=== PATIENT | female | born 1990 | race Caucasian/White ===

== ENCOUNTER 2017-01-08 07:41 | Emergency (ER) | payer OTHER ==
[~2017-01-08] VITALS: Wt 73.0 kg
[2017-01-08] MEDS ORDERED: ACYC800T57 PO (08:06)
[2017-01-08] MEDS ORDERED: IBUP-1542 PO (08:06)
[2017-01-08] MEDS ORDERED: HYDR-906 PO (08:06)
--- NOTE | 2017-01-08 08:14 | ERD ---
ER Documentation Chief Complaint Date/Time DATE: 01/08/17 TIME: 08:10 Chief Complaint RASH ON LEFT SIDE OF ABD, BURNING FEELING HPI 26-year-old female otherwise healthy presents with a burning linear rash on the left side of the abdomen and back for the past 3-4 days. Patient states that she did have chickenpox as a child, recently she developed this rash. It is across the left abdomen going to the back. She denies headache, fevers, chills , neck stiffness. ROS All systems reviewed and are negative except as per history of present illness. Medications Home Meds Active Scripts Hydrocodone/Acetaminophen ([place] 5-325 Tablet) 1 Each Tablet, 1 TAB PO Q6H Y for PAIN, #20 TAB Prov:EARL PARK PA-C 01/08/17 Ibuprofen* (Motrin*) 600 Mg Tab, 600 MG PO Q6, #30 TAB Prov:EARL APRK PA-C 01/08/17 Acyclovir* (Zovirax*) 800 Mg Tablet, 800 MG PO 5 TIMES DAILY for 7 Days, TAB Prov:EARL PARK PA-C 01/08/17 Allergies Allergies: Coded Allergies: No Known Allergy (Unverified , 04/25/14) PMhx/Soc History of Surgery: No Anesthesia Reaction: No Hx Neurological Disorder: No Hx Respiratory Disorders: No Hx Cardiac Disorders: No Hx Psychiatric Problems: No Hx Miscellaneous Medical Probl: Yes (gallstones) Hx Alcohol Use: No Hx Substance Use: No Hx Tobacco Use: No Physical Exam Vitals Vital Signs Date Time Temp Pulse Resp B/P Pulse Ox O2 Delivery O2 Flow Rate FiO2 01/08/17 07:45 97.9 69 17 120/72 99 Physical Exam General: Well-developed, well-nourished. The patient appears in no acute distress. HEENT: Head is normocephalic, atraumatic. No scleral icterus. Neck: Supple. Nontender. Lungs: Clear to auscultation. Normal air movement. Heart: Regular rate and rhythm. S1 and S2 are normal. No murmurs, gallops, or rubs. Abdomen: Nondistended. Extremities: No clubbing or cyanosis. Moving extremities x 4. No weakness. Neurologic: Alert and oriented 3. No focal deficits. Normal speech and gait. Skin: Linear vesicular rash in the left mid abdomen going to the left back Procedures/MDM 26-year-old female presents with vesicular rash in the left abdomen, consistent with shingles. There are no signs of systemic infection, no meningitis, encephalitis, secondary cellulitis. Abdominal pain is due to the rash, no signs of any intra-abdominal process. Departure Diagnosis: Primary Impression: Shingles Condition: Good Patient Instructions: Shingles (Herpes Zoster) Additional Instructions: Call your primary care doctor TOMORROW for an appointment during the next 1-2 days.See the doctor sooner or return here if your condition worsens before your appointment time. EARL PARK PA-C Jan 08, 2017 08:14
== END 2017-01-08 08:43 | disposition home or self-care (01) ==
LOC: FTE 07:41
DX: B02.9 Zoster without complications (principal)
CPT/HCPCS: 99284

== ENCOUNTER 2018-06-17 13:17 | Emergency (ER) | payer OTHER ==
[~2018-06-17] VITALS: Wt 72.8 kg
[~2018-06-17 13:17] MED LIST: ACYC800T5 PO; HYDR-4011 PO; IBUP-1542 PO
[2018-06-17 13:19] VITALS: BP 123/74; PULSE 67; RESP 18
[2018-06-17] MEDS ORDERED: SOD CHLORIDE 0.9% 1,000 ML IV ONE (14:00)
[2018-06-17] MEDS ORDERED: DIPHENHYDRAMINE 50 MG INJ IV ONE (14:00)
[2018-06-17] MEDS ORDERED: METOCLOPRAMIDE 10 MG INJ IV ONE (14:00)
[2018-06-17] MEDS ORDERED: IBUP-1542 PO (15:30)
--- NOTE | 2018-06-17 16:57 | ERD ---
ER Documentation Chief Complaint Chief Complaint [place] X 2 DAYS HPI 28-year-old female presents the emergency department complaining of right-sided head pain associated with nausea and photophobia 2 days. She states the pain is 8 out of 10. She denies neuro deficits. States she took ibuprofen couple hours prior to being seen ROS All systems reviewed and are negative except as per history of present illness. Medications Home Meds Active Scripts Ibuprofen* (Motrin*) 600 Mg Tab, 600 MG PO Q6H PRN for PAIN AND OR ELEVATED TEMP, #30 TAB Prov:MARILEE MORENO PA-C 06/17/18 Hydrocodone/Acetaminophen ([place] 5-325 Tablet) 1 Each Tablet, 1 TAB PO Q6H PRN for PAIN, #20 TAB Prov:EARL PARK PA-C 01/08/17 Ibuprofen* (Motrin*) 600 Mg Tab, 600 MG PO Q6, #30 TAB Prov:EARL PARK PA-C 01/08/17 Acyclovir* (Zovirax*) 800 Mg Tablet, 800 MG PO 5 TIMES DAILY for 7 Days, TAB Prov:EARL PARK PA-C 01/08/17 Allergies Allergies: Coded Allergies: No Known Allergy (Unverified , 04/25/14) PMhx/Soc Medical and Surgical Hx: pt denies Surgical Hx History of Surgery: No Anesthesia Reaction: No Hx Neurological Disorder: No Hx Respiratory Disorders: No Hx Cardiac Disorders: No Hx Psychiatric Problems: No Hx Miscellaneous Medical Probl: Yes (gallstones) Hx Alcohol Use: No Hx Substance Use: No Hx Tobacco Use: No Smoking Status: Never smoker Physical Exam Vitals Vital Signs Date Temp Pulse Resp B/P (MAP) Pulse Ox O2 O2 Flow FiO2 Time Delivery Rate 06/17/18 98.4 67 18 123/74 99 13:19 (90) Physical Exam GENERAL: well-developed/well-nourished, in no apparent distress, non-toxic appearing HENT: NC/AT, bilateral tympanic membrane is normal with good cone of light, nares patent, oropharynx clear without exudates EYES: Conjunctiva normal, PERRLA, EOMI, no nystagmus noted NECK: Supple, no lymphadenopathy PULM: CTA bilaterally, no rales, rhonchi, or wheezing heard CV: Normal S1S2, RRR, good capillary refill GI: Soft, non-distended, normal bowel sounds, non-tender BACK: No midline tenderness, no masses, No CVAT EXT: No clubbing, cyanosis, or edema NEURO: Alert and orientated to person, place, and time. CN II-IIX intact. Gait and coordination were normal. Hand care administrative tech strength were equal and within normal limits SKIN: Intact, normal turgor PSYCH: Normal mood and mentation, patient denied SI Result Diagram: 06/17/18 1409 06/17/18 1408 Results 24 hrs Laboratory Tests Test 06/17/18 14:08 06/17/18 14:09 06/17/18 14:47 Sodium Level 139 mmol/L Potassium Level 4.4 mmol/L Chloride Level 100 mmol/L Carbon Dioxide Level 28 mmol/L Anion Gap 11 Blood Urea Nitrogen 13 mg/dl Creatinine 0.48 mg/dl Est Glomerular Filtrat Rate mL/min > 60 mL/min Glucose Level 100 mg/dl Calcium Level 10.2 mg/dl Total Bilirubin 0.3 mg/dl Direct Bilirubin 0.00 mg/dl Indirect Bilirubin 0.3 mg/dl Aspartate Amino Transf (AST/SGOT) 28 IU/L Alanine 13 IU/L Aminotransferase (ALT/SGPT) Alkaline Phosphatase 79 IU/L Total Protein 9.3 g/dl Albumin 5.1 g/dl Globulin 4.20 g/dl Albumin/Globulin Ratio 1.21 White Blood Count 7.8 10^3/ul Red Blood Count 5.05 10^6/ul Hemoglobin 14.3 g/dl Hematocrit 43.7 % Mean Corpuscular Volume 86.5 fl Mean Corpuscular Hemoglobin 28.3 pg Mean Corpuscular 32.7 g/dl Hemoglobin Concent Red Cell Distribution Width 12.5 % Platelet Count 301 10^3/UL Mean Platelet Volume 9.7 fl Immature Granulocytes % 0.300 % Neutrophils % 74.5 % Lymphocytes % 20.2 % Monocytes % 3.9 % Eosinophils % 0.6 % Basophils % 0.5 % Nucleated Red Blood Cells % 0.0 /100WBC Immature Granulocytes # 0.020 10^3/ul Neutrophils # 5.8 10^3/ul Lymphocytes # 1.6 10^3/ul Monocytes # 0.3 10^3/ul Eosinophils # 0.1 10^3/ul Basophils # 0.0 10^3/ul Nucleated Red Blood Cells # 0.0 10^3/ul POC Beta HCG, Qualitative NEGATIVE Current Medications Medications Dose Sig/Karen Start Time Status Last (Trade) Ordered Route PRN Stop Time Admin Dose Reason Admin Sodium 1,000 ml @ Q1H ONCE 06/17/18 DC 06/17/18 Chloride 1,000 mls/hr IV 14:00 14:18 06/17/18 14:59 10 mg ONCE ONCE 06/17/18 DC 06/17/18 Metoclopramid IV 14:00 14:18 e HCl 06/17/18 14:01 (Reglan) 25 mg ONCE ONCE 06/17/18 DC 06/17/18 Diphenhydrami IV 14:00 14:18 ne HCl 06/17/18 14:01 (Benadryl) Procedures/MDM MDM: 28-year-old female presents with headache migraine versus tension. Other differentials include but not limited to cluster headache, overuse medication headache, subarachnoid hemorrhage, meningitis, stroke. Pain relief was given in the ED with some improvement. Neurology exam was normal and I don't recommend a CT scan at this time DISPOSITION: hemodynamically stable and neurovascularly intact. Prescriptions were given. Discussed to follow up with a primary care physician in the next couple days. Return to the ER if condition worsens or not improving as expected. Patient agreed and understood this plan. Departure Diagnosis: Primary Impression: Headache Condition: Stable Patient Instructions: What Are Migraine and Tension Headaches?, Self-Care for Headaches, Preventing Migraine Headaches: Triggers, Preventing Migraine Headaches: Medications and Lifestyle Changes Referrals: KWABENA LU MD (PCP) Additional Instructions: Visite a mckeon chitra estes para un EXAMEN.Regrese a estas instalaciones si no se mejora zoe esperbamos o zoe le dijimos. [place] toda la medicina huan y zoe se le indic. Regrese a estas instalaciones si no se mejora zoe esperbamos o zoe le dijimos. MARILEE MORENO PA-C Jun 17, 2018 16:57
== END 2018-06-17 15:57 | disposition home or self-care (01) ==
LOC: FTE 13:17
DX: R51 Headache (principal)
CPT/HCPCS: 80053; 81025; 85025; 96361; 96374; 96375; J1200; J2765; J7030; Z7502